=== PATIENT | male | born 1970 | race Hispanic/Latino ===

== ENCOUNTER 2024-02-19 08:59 | Emergency (ER) | payer OTHER ==
[2024-02-19] MEDS ORDERED: Lidocaine 1% PF 5 ML VIAL ONE (09:32)
[2024-02-19] MEDS ORDERED: Bacitracin 1 PK ONE (10:09)
[2024-02-19] MEDS ORDERED: CEFAZOLIN 2 GM VIAL ONE (10:47)
[2024-02-19] MEDS ORDERED: Ibuprofen 600 MG TAB ONE (10:47)
[2024-02-19] MEDS ORDERED: Acetaminophen 500 MG TAB ONE (10:47)
== END 2024-02-19 11:21 | disposition home or self-care (01) ==
LOC: MADERS 08:59
DX: S62.632A Displaced fracture of distal phalanx of right middle finger, initial encounter for closed fracture (principal); Z55.6 Problems related to health literacy; Z59.00 Homelessness unspecified; E78.5 Hyperlipidemia, unspecified; W22.8XXA Striking against or struck by other objects, initial encounter
CPT/HCPCS: 11010; 26755; 96372